=== PATIENT | male | born 1985 | race Caucasian/White ===

== ENCOUNTER 2018-07-02 19:01 | Emergency (ER) | payer SELFPAY ==
[2018-07-02 19:29] LABS: Absolute Lymphocytes (CBC) 2.8 K/uL (0.7-4.9); Absolute Monocytes 0.8 K/uL (0.1-1.3); Basophils % 0.6 % (0-1.3); Eosinophils % 1.1 % (0-4.4); Hematocrit 51.8 % (39.6-49.0); Monocytes % 5.5 % (3.3-12.3); RBC Red Blood Cell Count 5.44 M/uL (4.33-5.43)
[2018-07-02 19:32] LABS: Protime INR 1.01
[2018-07-02 19:49] LABS: ALT/SGPT 67 U/L (12-78); AST/SGOT 33 U/L (15-37); Albumin 3.5 g/dL (3.4-5.0); Alkaline Phosphatase 111 U/L (45-117); BUN Blood Urea Nitrogen 11 mg/dL (7-18); Bicarbonate 26 mmol/L (21-32); Bilirubin Direct < 0.1 mg/dL (0-0.2); Bilirubin Total 0.4 mg/dL (0.2-1.0); Glucose Level 102 mg/dL (74-106); Magnesium 1.6 mg/dL (1.8-2.4); Potassium 4.2 mmol/L (3.5-5.1); Protein, Total 7.3 g/dL (6.4-8.2); Sodium Level 138 mmol/L (136-145); Troponin (Emerg Dept Use Only) < 0.02 ng/mL (0.0-0.045)
[2018-07-02 19:51] LABS: NT PRO-BNP < 5 pg/mL (<125)
--- NOTE | 2018-07-02 20:05 | RAD REPORT ---
EXAM DESCRIPTION: RAD - Chest Single View - 07/02/2018 7:49 pm CLINICAL HISTORY: CHEST PAIN Chest pain. COMPARISON: Chest Single View dated 08/20/2017 FINDINGS: Portable technique limits examination quality. The lungs are grossly clear. The heart is normal in size. No displaced fractures. IMPRESSION: No acute intrathoracic process suspected.
[2018-07-02] MEDS ORDERED: KETOROLAC 30 MG/ML INJ ONE (20:54)
[2018-07-02] MEDS ORDERED: DIAZEPAM 5 MG TABLET ONE (21:00)
--- NOTE | 2018-07-02 21:06 | EDPHYS ---
Physician Documentation [facility] Name: Kar Suresh Age: 32 yrs Sex: Male : 1985 Arrival Date: 07/02/2018 Time: 19:02 Bed 7 Private MD: ED Physician Domingo Kendall HPI: 07/02 19:23 This 32 yrs old Male presents to ER via Ambulatory with complaints of Chest pm1 Pain, X 1DAY. 19:23 The patient or guardian reports chest pain that is located primarily in the anterior pm1 chest wall, left. The pain does not radiate. Associated signs and symptoms: Pertinent positives: headache, Pertinent negatives: abdominal pain, cough, diaphoresis, dizziness, nausea, palpitations, shortness of breath, syncope, vomiting. The chest pain is described as sharp. Duration: The patient or guardian reports a single episode, that is still ongoing. Modifying factors: The symptoms are alleviated by nothing. the symptoms are aggravated by deep breath, palpation of area, movement of left arm. Severity of pain: in the emergency department the pain is unchanged. The patient has not experienced similar symptoms in the past. Historical: - Allergies: 19:21 No Known Allergies; ph - Home Meds: 19:21 citalopram 40 mg tab 1 tab once daily [Active]; lisinopril 20 mg Oral tab 1 tab once ph daily [Active]; - PMHx: 19:21 Hypertension; ph - Immunization history:: Flu vaccine is not up to date. - Social history:: Smoking status: Patient uses tobacco products, smokes one pack cigarettes per day. - Ebola Screening: : No symptoms or risks identified at this time. ROS: 19:24 Constitutional: Negative for fever, chills, and weight loss, Eyes: Negative for injury, pm1 pain, redness, and discharge, ENT: Negative for injury, pain, and discharge, Neck: Negative for injury, pain, and swelling. 19:24 Respiratory: Negative for shortness of breath, cough, wheezing, and pleuritic chest pain, Abdomen/GI: Negative for abdominal pain, nausea, vomiting, diarrhea, and constipation, Back: Negative for injury and pain, : Negative for injury, bleeding, discharge, and swelling, MS/Extremity: Negative for injury and deformity, Skin: Negative for injury, rash, and discoloration, Neuro: Negative for headache, weakness, numbness, tingling, and seizure. 19:24 Cardiovascular: Positive for chest pain, Negative for edema, orthopnea, palpitations, paroxysmal nocturnal dyspnea. Exam: 19:24 Constitutional: This is a well developed, well nourished patient who is awake, alert, pm1 and in no acute distress. Head/Face: Normocephalic, atraumatic. Eyes: Pupils equal round and reactive to light, extra-ocular motions intact. Lids and lashes normal. Conjunctiva and sclera are non-icteric and not injected. Cornea within normal limits. Periorbital areas with no swelling, redness, or edema. ENT: Nares patent. No nasal discharge, no septal abnormalities noted. Tympanic membranes are normal and external auditory canals are clear. Oropharynx with no redness, swelling, or masses, exudates, or evidence of obstruction, uvula midline. Mucous membranes moist. Neck: Trachea midline, no thyromegaly or masses palpated, and no cervical lymphadenopathy. Supple, full range of motion without nuchal rigidity, or vertebral point tenderness. No Meningismus. 19:24 Cardiovascular: Regular rate and rhythm with a normal S1 and S2. No gallops, murmurs, or rubs. Normal PMI, no JVD. No pulse deficits. Respiratory: Lungs have equal breath sounds bilaterally, clear to auscultation and percussion. No rales, rhonchi or wheezes noted. No increased work of breathing, no retractions or nasal flaring. Abdomen/GI: Soft, non-tender, with normal bowel sounds. No distension or tympany. No guarding or rebound. No evidence of tenderness throughout. Back: No spinal tenderness. No costovertebral tenderness. Full range of motion. Skin: Warm, dry with normal turgor. Normal color with no rashes, no lesions, and no evidence of cellulitis. MS/ Extremity: Pulses equal, no cyanosis. Neurovascular intact. Full, normal range of motion. 19:24 Chest/axilla: Inspection: normal, Palpation: crepitus, is not appreciated, tenderness, that is moderate, of the focal point on anterior aspect of left upper chest, that totally reproduces the patient's complaints, reproduced with deep breathing and movement of left arm. 19:24 Neuro: Orientation: is normal, Motor: is normal, moves all fours. Vital Signs: 19:19 BP 156 / 113; Pulse 98; Resp 20; Temp 98.4; Pulse Ox 98% on R/A; Weight 113.4 kg; Pain ph 8/10; 19:45 BP 145 / 98; Pulse 91; Resp 19; Pulse Ox 95% on R/A; ca1 20:30 BP 158 / 97; Pulse 84; Resp 20; Pulse Ox 95% on R/A; Pain 8/10; ca1 20:58 BP 145 / 80; Pulse 93; Resp 18; Pulse Ox 96% on R/A; Pain 6/10; ca1 MDM: 19:22 Patient medically screened. pm1 19:26 Data reviewed: vital signs. Data interpreted: Pulse oximetry: on room air is 98 %. pm1 Interpretation: normal. 20:49 Counseling: I had a detailed discussion with the patient and/or guardian regarding: the pm1 historical points, exam findings, and any diagnostic results supporting the discharge/admit diagnosis, lab results, radiology results, the need for outpatient follow up, to return to the emergency department if symptoms worsen or persist or if there are any questions or concerns that arise at home. 07/02 19:19 Order name: Basic Metabolic Panel; Complete Time: 20:04 ph 07/02 19:19 Order name: CBC with Diff; Complete Time: 20: ph 07/02 19:19 Order name: LFT's; Complete Time: 20: ph 07/02 19:19 Order name: Magnesium; Complete Time: 20:04 ph 07/02 19:19 Order name: NT PRO-BNP; Complete Time: 20:04 ph 07/02 19:19 Order name: PT-INR; Complete Time: 20:04 ph 07/02 19:19 Order name: Troponin (emerg Dept Use Only); Complete Time: 20:04 ph 07/02 19:19 Order name: XRAY Chest (1 view); Complete Time: 20:08 ph 07/02 19:19 Order name: EKG; Complete Time: 19:20 ph 07/02 19:19 Order name: Cardiac monitoring; Complete Time: 19:21 ph 07/02 19:19 Order name: EKG - Nurse/Tech; Complete Time: 19:21 ph 07/02 19:19 Order name: IV Saline Lock; Complete Time: 19:21 ph 07/02 19:19 Order name: Labs collected and sent; Complete Time: 19:21 ph 07/02 19:19 Order name: O2 Per Protocol; Complete Time: 19:21 ph 07/02 19:19 Order name: O2 Sat Monitoring; Complete Time: 19:22 ph Administered Medications: 20:48 Drug: TORadol 30 mg Route: IVP; Site: right antecubital; ca1 21:06 Follow up: Response: No adverse reaction ca1 20:52 Drug: Valium 5 mg Route: PO; ca1 21:06 Follow up: Response: Medication administered at discharge. ca1 Disposition: 07/02/18 20:49 Discharged to Home. Impression: Chest pain, unspecified, Acute stress reaction. - Condition is Stable. - Discharge Instructions: Nonspecific Chest Pain, Steps to Quit Smoking, Smoking Hazards, Stress and Stress Management. - Prescriptions for Valium 2 mg Oral Tablet - take 1 tablet by ORAL route every 8 hours As needed; 10 tablet. Diclofenac Sodium 75 mg Oral Tablet, Delayed Release (E.C.) - take 1 tablet by ORAL route 2 times per day As needed; 30 tablet. - Medication Reconciliation Form, Thank You Letter, Antibiotic Education, Prescription Opioid Use form. - Follow up: Emergency Department; When: As needed; Reason: Worsening of condition. Follow up: Private Physician; When: 2 - 3 days; Reason: Recheck today's complaints, Continuance of care, Re-evaluation by your physician. - Problem is new. - Symptoms have improved. Addendum: 07/09/2018 06:52 Co-signature as Attending Physician, Domingo Kendall MD I agree with the assessment and t w4 plan of care. Signatures: Dispatcher [employer] Sugar Corbin, RN RN ph Dajuan Olea, TAKE UP SUPERVISOR TAKE UP SUPERVISOR pm1 Domingo Kendall MD MD tw4 Iris Lu RN RN ca1 Corrections: (The following items were deleted from the chart) 07/02 21:05 20:49 07/02/2018 20:49 Discharged to Home. Impression: Chest pain, unspecified; Acute ca1 stress reaction. Condition is Stable. Forms are Medication Reconciliation Form, Thank You Letter, Antibiotic Education, Prescription Opioid Use. Follow up: Emergency Department; When: As needed; Reason: Worsening of condition. Follow up: Private Physician; When: 2 - 3 days; Reason: Recheck today's complaints, Continuance of care, Re-evaluation by your physician. Problem is new. Symptoms have improved. pm1
--- NOTE | 2018-07-02 21:06 | ER ---
Nurse's Notes [facility] Name: Kar Suresh Age: 32 yrs Sex: Male : 1985 Arrival Date: 07/02/2018 Time: 19:02 Bed 7 Private MD: Diagnosis: Chest pain, unspecified;Acute stress reaction Presentation: 07/02 19:16 Presenting complaint: Patient states: L sided chest pain that began this morning, ph describes as constant pressure, denies SOB, N/V, or diaphoresis, reports family hx of cardiac issues, states, " My mother had a major heart attack at 31.". Transition of care: patient was not received from another setting of care. Onset of symptoms was July 02, 2018. Risk Assessment: Do you want to hurt yourself or someone else? Patient reports no desire to harm self or others. Initial Sepsis Screen: Does the patient meet any 2 criteria? No. Patient's initial sepsis screen is negative. Does the patient have a suspected source of infection? No. Patient's initial sepsis screen is negative. Care prior to arrival: None. 19:16 Method Of Arrival: Ambulatory ph 19:16 Acuity: MIKO 2 ph Historical: - Allergies: 19:21 No Known Allergies; ph - Home Meds: 19:21 citalopram 40 mg tab 1 tab once daily [Active]; lisinopril 20 mg Oral tab 1 tab once ph daily [Active]; - PMHx: 19:21 Hypertension; ph - Immunization history:: Flu vaccine is not up to date. - Social history:: Smoking status: Patient uses tobacco products, smokes one pack cigarettes per day. - Ebola Screening: : No symptoms or risks identified at this time. Screenin:23 Abuse screen: Denies threats or abuse. Denies injuries from another. Nutritional ca1 screening: No deficits noted. Tuberculosis screening: No symptoms or risk factors identified. Fall Risk None identified. Assessment: 19:23 General: Appears in no apparent distress. Behavior is calm, cooperative, appropriate ca1 for age. Pain: Complains of pain in chest Pain does not radiate. Pain currently is 8 out of 10 on a pain scale. Quality of pain is described as dull, Pain began since 10am this morning. Neuro: Level of Consciousness is awake, alert, obeys commands, Oriented to person, place, time, situation. Cardiovascular: Heart tones S1 S2 present Capillary refill < 3 seconds Patient's skin is warm and dry. Pulses are all present. Rhythm is regular. Respiratory: Airway is patent Trachea midline Respiratory effort is even, unlabored, Respiratory pattern is regular, symmetrical, Breath sounds are clear bilaterally. GI: Abdomen is round non-distended, Bowel sounds present X 4 quads. Abd is soft and non tender X 4 quads. : No signs and/or symptoms were reported regarding the genitourinary system. EENT: No signs and/or symptoms were reported regarding the EENT system. Derm: Skin is intact, is healthy with good turgor, Skin is pink, warm \\T\\ dry. Musculoskeletal: Circulation, motion, and sensation intact. Capillary refill < 3 seconds, Range of motion: intact in all extremities. 20:35 Reassessment: Patient appears in no apparent distress at this time. Patient and/or ca1 family updated on plan of care and expected duration. Pain level reassessed. Patient is alert, oriented x 3, equal unlabored respirations, skin warm/dry/pink. 20:59 Reassessment: Patient appears in no apparent distress at this time. Patient and/or ca1 family updated on plan of care and expected duration. Pain level reassessed. Patient is alert, oriented x 3, equal unlabored respirations, skin warm/dry/pink. Vital Signs: 19:19 BP 156 / 113; Pulse 98; Resp 20; Temp 98.4; Pulse Ox 98% on R/A; Weight 113.4 kg; Pain ph 8/10; 19:45 BP 145 / 98; Pulse 91; Resp 19; Pulse Ox 95% on R/A; ca1 20:30 BP 158 / 97; Pulse 84; Resp 20; Pulse Ox 95% on R/A; Pain 8/10; ca1 20:58 BP 145 / 80; Pulse 93; Resp 18; Pulse Ox 96% on R/A; Pain 6/10; ca1 ED Course: 19:02 Patient arrived in ED. es 19:17 Dajuan Olea NP is PHCP. pm1 19:18 Shayy Sosa MD is Attending Physician. pm1 19:18 Triage completed. ph 19:19 Arm band placed on. ph 19:20 EKG done, by ED staff, reviewed by Domingo Kendall MD. Inserted saline lock: 20 gauge mt in right antecubital area, using aseptic technique. Blood collected. 19:23 Iris Lu, RN is Primary Nurse. ca1 19:23 Patient has correct armband on for positive identification. Placed in gown. Bed in low ca1 position. Call light in reach. Side rails up X 1. front desk monitor on. Pulse ox on. NIBP on. 19:23 Warm blanket given. ca1 19:50 XRAY Chest (1 view) In Process Unspecified. EDMS 20:49 Domingo Kendall MD is Attending Physician. pm1 20:59 No provider procedures requiring assistance completed. IV discontinued, intact, ca1 bleeding controlled, No redness/swelling at site. Pressure dressing applied. Patient maintains SpO2 saturation greater than 95% on room air. Administered Medications: 20:48 Drug: TORadol 30 mg Route: IVP; Site: right antecubital; ca1 21:06 Follow up: Response: No adverse reaction ca1 20:52 Drug: Valium 5 mg Route: PO; ca1 21:06 Follow up: Response: Medication administered at discharge. ca1 Outcome: 20:49 Discharge ordered by . pm1 20:59 Discharged to home ambulatory. ca1 20:59 Condition: stable 20:59 Discharge instructions given to patient, Instructed on discharge instructions, follow up and referral plans. medication usage, Demonstrated understanding of instructions, follow-up care, medications. 20:59 Discharged to home ambulatory, with family. ca1 21:05 Patient left the ED. ca1 Signatures: Dispatcher [employer] EDUna Seay Patricia, RN RN Dajuan Olea NP REPRODUCTION ORDER PROCESSOR pm1 Lyndsay White tx Iris Lu RN RN ca1
--- NOTE | 2018-07-03 06:53 | EKG ---
Test Date: 2018-07-02 Test Time: 19:09:34 Bobbin Coil Winder: YUDELKA MEASUREMENT RESULTS: Intervals: Rate: 90 NJ: 148 QRSD: 92 QT: 358 QTc: 437 [place]: P: 61 NJ: 148 QRS: 62 T: 68 INTERPRETIVE STATEMENTS: Normal sinus rhythm Possible Anterior infarct, age undetermined Abnormal ECG Compared to ECG 08/20/2017 18:57:23 Myocardial infarct finding now present Sinus tachycardia no longer present Electronically Signed On 07-03-18 06:52:45 WEB PORTAL DEVELOPER by Alphonse Green
== END 2018-07-02 21:05 | disposition home or self-care (01) ==
LOC: ER 19:01
DX: F43.0 Acute stress reaction (principal); R07.9 Chest pain, unspecified; R94.31 Abnormal electrocardiogram [ECG] [EKG]; I10 Essential (primary) hypertension; F17.210 Nicotine dependence, cigarettes, uncomplicated; Z79.899 Other long term (current) drug therapy
CPT/HCPCS: 36415; 71045; 80048; 80076; 83735; 83880; 84484; 85025; 85610; 93005; 96374; 99285

== ENCOUNTER 2019-04-18 18:45 | Emergency (ER) | payer SELFPAY ==
[2019-04-18] MEDS ORDERED: LORAZEPAM 1 MG TABLET ONE (19:21)
[2019-04-18 19:24] LABS: Absolute Lymphocytes (CBC) 3.1 K/uL (0.7-4.9); Basophils % 0.7 % (0-1.3); Hematocrit 47.4 % (39.6-49.0); Lymphocytes % 25.8 % (15.3-44.8); MPV 8.9 fL (7.6-11.3); RBC Red Blood Cell Count 4.97 M/uL (4.33-5.43)
--- NOTE | 2019-04-18 19:31 | RAD REPORT ---
EXAM DESCRIPTION: RAD - Chest Single View - 04/18/2019 7:20 pm CLINICAL HISTORY: Chest pain COMPARISON: June 2008 TECHNIQUE: AP portable chest image was obtained 1914 hours . FINDINGS: Lungs are clear. Heart and vasculature are normal. No measurable pleural effusion and no p neumothorax. No acute bony abnormality seen. No acute aortic findings suspected. IMPRESSION: No acute cardiopulmonary process. No significant interval change.
[2019-04-18 19:48] LABS: ALT/SGPT 99 U/L (12-78); AST/SGOT 59 U/L (15-37); Albumin 3.5 g/dL (3.4-5.0); Alkaline Phosphatase 113 U/L (45-117); BUN Blood Urea Nitrogen 9 mg/dL (7-18); Bicarbonate 27 mmol/L (21-32); Bilirubin Direct < 0.1 mg/dL (0-0.2); Bilirubin Total 0.3 mg/dL (0.2-1.0); Glucose Level 128 mg/dL (74-106); Magnesium 1.6 mg/dL (1.8-2.4); Potassium 3.9 mmol/L (3.5-5.1); Protein, Total 7.3 g/dL (6.4-8.2); Sodium Level 138 mmol/L (136-145); Troponin (Emerg Dept Use Only) < 0.02 ng/mL (0.0-0.045)
[2019-04-18 19:54] LABS: NT PRO-BNP < 5 pg/mL (<125)
[2019-04-18] MEDS ORDERED: ACETAMINOPHEN 325 MG TABLET ONE (20:03)
[2019-04-18] MEDS ORDERED: CEFTRIAXONE/SWI 1gm 1 GM/10 ML SYR ONE (20:34)
[2019-04-18] MEDS ORDERED: MAGNESIUM SULFATE 1 gm IVPB 1 GM/100 ML BAG IV ONE (20:34)
--- NOTE | 2019-04-18 22:11 | ER ---
Nurse's Notes [facility] Name: Kar Suresh Age: 33 yrs Sex: Male : 1985 Arrival Date: 04/18/2019 Time: 18:47 Bed 6 Private MD: Diagnosis: Chest pain, unspecified Presentation: 04/18 19:00 Presenting complaint: Patient states: cheat pain across entire chest X 2 hours, iw described as "really bad acid indigestion", achy, pressure, also has a massive headache and also spit up some blood. Transition of care: patient was not received from another setting of care. Onset of symptoms was April 18, 2019. Risk Assessment: Do you want to hurt yourself or someone else? Patient reports no desire to harm self or others. Initial Sepsis Screen: Does the patient meet any 2 criteria? No. Patient's initial sepsis screen is negative. Does the patient have a suspected source of infection? No. Patient's initial sepsis screen is negative. Care prior to arrival: None. 19:00 Method Of Arrival: Ambulatory iw 19:00 Acuity: MIKO 2 iw Historical: - Allergies: 19:11 No Known Allergies; iw - Home Meds: 19:11 None [Active]; iw - PMHx: 19:11 Hypertension; iw - PSHx: 19:11 None; iw - Immunization history:: Adult Immunizations not up to date. - Social history:: Smoking status: Patient uses tobacco products, smokes one pack cigarettes per day. Patient uses alcohol, on a daily basis. - Ebola Screening: : Patient negative for fever greater than or equal to 101.5 degrees Fahrenheit, and additional compatible Ebola Virus Disease symptoms Patient denies exposure to infectious person Patient denies travel to an Ebola-affected area in the 21 days before illness onset No symptoms or risks identified at this time. Screenin:00 Abuse screen: Denies threats or abuse. Nutritional screening: No deficits noted. jb4 Tuberculosis screening: No symptoms or risk factors identified. Fall Risk IV access (20 points). Total Page Fall Scale indicates No Risk (0-24 pts). Assessment: 19:00 General: Appears in no apparent distress. uncomfortable, Behavior is cooperative, jb4 anxious. Pain: Complains of pain in chest Pain does not radiate. Pain currently is 7 out of 10 on a pain scale. Quality of pain is described as pressure, Pain began 3 hours ago. Neuro: Level of Consciousness is awake, alert, obeys commands, Oriented to person, place, time, situation. Cardiovascular: Patient's skin is warm and dry. Rhythm is sinus tachycardia. Respiratory: Reports cough that is productive, Airway is patent Respiratory effort is even, unlabored, Respiratory pattern is regular, symmetrical. GI: No deficits noted. No signs and/or symptoms were reported involving the gastrointestinal system. : No deficits noted. No signs and/or symptoms were reported regarding the genitourinary system. EENT: No deficits noted. No signs and/or symptoms were reported regarding the EENT system. Derm: Skin is intact, Skin is pink, warm \\T\\ dry. Musculoskeletal: Circulation, motion, and sensation intact. Range of motion: intact in all extremities. 19:17 Reassessment: Pt appears to be very anxious, voices anxiety, request something for his jb4 anxiety. Provider notified, see [facility] for orders. 20:00 Reassessment: Patient appears in no apparent distress at this time. Patient and/or jb4 family updated on plan of care and expected duration. Pain level reassessed. Patient is alert, oriented x 3, equal unlabored respirations, skin warm/dry/pink. 21:07 Reassessment: Patient appears in no apparent distress at this time. Patient and/or jb4 family updated on plan of care and expected duration. Pain level reassessed. Patient is alert, oriented x 3, equal unlabored respirations, skin warm/dry/pink. Patient states feeling better. 22:00 Reassessment: Patient appears in no apparent distress at this time. Patient and/or jb4 family updated on plan of care and expected duration. Pain level reassessed. Patient is alert, oriented x 3, equal unlabored respirations, skin warm/dry/pink. Patient states feeling better. 22:21 Reassessment: Patient appears in no apparent distress at this time. Patient and/or jb4 family updated on plan of care and expected duration. Pain level reassessed. Patient is alert, oriented x 3, equal unlabored respirations, skin warm/dry/pink. PT verbalized understanding of d/c and follow up instructions. Ambulated out of ED with steady gait with . Vital Signs: 19:11 BP 151 / 108; Pulse 111; Resp 20 S; Temp 97.8; Pulse Ox 97% on R/A; Weight 117.93 kg; iw Height 5 ft. 10 in. (177.80 cm); Pain 8/10; 20:30 BP 133 / 82; Pulse 86; Resp 18; Pulse Ox 99% on R/A; jb4 21:15 BP 133 / 82; Pulse 93; Resp 16; Pulse Ox 95% on R/A; jb4 22:00 BP 122 / 90; Pulse 96; Resp 14; Pulse Ox 100% on R/A; jb4 19:11 Body Mass Index 37.31 (117.93 kg, 177.80 cm) iw ED Course: 18:47 Patient arrived in ED. mr 18:56 Dajuan Olea NP is PHCP. pm1 18:56 Mitul Pierre MD is Attending Physician. pm1 19:00 Patient has correct armband on for positive identification. Bed in low position. Call jb4 light in reach. Side rails up X 1. campus monitor on. Pulse ox on. NIBP on. 19:00 Initial lab(s) drawn, by az, sent to lab. Inserted saline lock: 20 gauge in right jb4 antecubital area, using aseptic technique. Blood collected. Patient maintains SpO2 saturation greater than 95% on room air. 19:01 Brian Serrano, RN is Primary Nurse. jb4 19:11 Triage completed. iw 19:11 Arm band placed on. iw 19:20 XRAY Chest (1 view) In Process Unspecified. EDMS 22:21 No provider procedures requiring assistance completed. IV discontinued, intact, jb4 bleeding controlled, No redness/swelling at site. Pressure dressing applied. Administered Medications: 19:26 Drug: Ativan 1 mg Route: PO; jb4 19:50 Follow up: Response: No adverse reaction; Marked relief of symptoms; Pain is decreased jb4 20:09 Drug: Tylenol 650 mg Route: PO; jb4 20:30 Follow up: Response: No adverse reaction; Pain is decreased jb4 20:40 Drug: Rocephin 1 grams Route: IV; Rate: calculated rate; Site: right antecubital; jb4 20:45 Follow up: Response: No adverse reaction; IV Status: Completed infusion; IV Intake: [id number] 20:45 Drug: Magnesium Sulfate 1 grams Route: IVPB; Infused Over: 1 hrs; Site: right jb4 antecubital; 21:45 Follow up: Response: No adverse reaction; IV Status: Completed infusion; IV Intake: jb4 100ml Intake: 20:45 IV: 10ml; Total: 10ml. jb4 21:45 IV: 100ml; Total: 110ml. jb4 Outcome: 22:09 Discharge ordered by . pm1 22:22 Discharged to home ambulatory, with significant other. jb4 22:22 Condition: stable 22:22 Discharge instructions given to patient, significant other, Instructed on discharge instructions, follow up and referral plans. medication usage, Demonstrated understanding of instructions, follow-up care, medications, Prescriptions given X 2. 22:24 Patient left the ED. jb4 Signatures: Dispatcher [employer] Lucille Calderon Irene, RN Dajuan Rosenberg, HEEL ATTACHER HEEL ATTACHER pm1 Brian Serrano RN RN jb4
--- NOTE | 2019-04-18 22:11 | EDPHYS ---
Physician Documentation [facility] Name: Kar Suresh Age: 33 yrs Sex: Male : 1985 Arrival Date: 04/18/2019 Time: 18:47 Bed 6 Private MD: ED Physician Mitul Pierre HPI: 04/18 19:06 This 33 yrs old Male presents to ER via Ambulatory with complaints of Chest pm1 Pain. 19:06 The patient or guardian reports chest pain that is located primarily in the mid-sternal pm1 area. The pain does not radiate. Associated signs and symptoms: Pertinent positives: cough, Pertinent negatives: abdominal pain, headache, shortness of breath. The chest pain is described as a pressure. Duration: The patient or guardian reports a single episode, that is still ongoing. Modifying factors: The symptoms are alleviated by nothing. the symptoms are aggravated by cough, deep breath. Severity of pain: in the emergency department the pain is actually worse. The patient has experienced similar episodes in the past, a few times, today's symptoms are similar, to when the patient was apparently diagnosed with bronchitis. The patient has not recently seen a physician. Historical: - Allergies: 19:11 No Known Allergies; iw - Home Meds: 19:11 None [Active]; iw - PMHx: 19:11 Hypertension; iw - PSHx: 19:11 None; iw - Immunization history:: Adult Immunizations not up to date. - Social history:: Smoking status: Patient uses tobacco products, smokes one pack cigarettes per day. Patient uses alcohol, on a daily basis. - Ebola Screening: : Patient negative for fever greater than or equal to 101.5 degrees Fahrenheit, and additional compatible Ebola Virus Disease symptoms Patient denies exposure to infectious person Patient denies travel to an Ebola-affected area in the 21 days before illness onset No symptoms or risks identified at this time. ROS: 19:15 Constitutional: Negative for fever, chills, and weight loss, Eyes: Negative for injury, pm1 pain, redness, and discharge, ENT: Negative for injury, pain, and discharge, Neck: Negative for injury, pain, and swelling. 19:15 Respiratory: Negative for shortness of breath, cough, wheezing, and pleuritic chest pain, Abdomen/GI: Negative for abdominal pain, nausea, vomiting, diarrhea, and constipation, Back: Negative for injury and pain, MS/Extremity: Negative for injury and deformity, Skin: Negative for injury, rash, and discoloration, Neuro: Negative for headache, weakness, numbness, tingling, and seizure. 19:15 Cardiovascular: Positive for chest pain, Negative for edema, orthopnea, palpitations. 19:15 Psych: Positive for anxiety. Exam: 19:15 Constitutional: This is a well developed, well nourished patient who is awake, alert, pm1 and in no acute distress. Head/Face: Normocephalic, atraumatic. Eyes: Pupils equal round and reactive to light, extra-ocular motions intact. Lids and lashes normal. Conjunctiva and sclera are non-icteric and not injected. Cornea within normal limits. Periorbital areas with no swelling, redness, or edema. ENT: Nares patent. No nasal discharge, no septal abnormalities noted. Tympanic membranes are normal and external auditory canals are clear. Oropharynx with no redness, swelling, or masses, exudates, or evidence of obstruction, uvula midline. Mucous membranes moist. Neck: Trachea midline, no thyromegaly or masses palpated, and no cervical lymphadenopathy. Supple, full range of motion without nuchal rigidity, or vertebral point tenderness. No Meningismus. Chest/axilla: Normal chest wall appearance and motion. Nontender with no deformity. No lesions are appreciated. Cardiovascular: Regular rate and rhythm with a normal S1 and S2. No gallops, murmurs, or rubs. Normal PMI, no JVD. No pulse deficits. Respiratory: Lungs have equal breath sounds bilaterally, clear to auscultation and percussion. No rales, rhonchi or wheezes noted. No increased work of breathing, no retractions or nasal flaring. Abdomen/GI: Soft, non-tender, with normal bowel sounds. No distension or tympany. No guarding or rebound. No evidence of tenderness throughout. Back: No spinal tenderness. No costovertebral tenderness. Full range of motion. Skin: Warm, dry with normal turgor. Normal color with no rashes, no lesions, and no evidence of cellulitis. MS/ Extremity: Pulses equal, no cyanosis. Neurovascular intact. Full, normal range of motion. 19:15 Neuro: Orientation: is normal, Motor: is normal, moves all fours. Vital Signs: 19:11 BP 151 / 108; Pulse 111; Resp 20 S; Temp 97.8; Pulse Ox 97% on R/A; Weight 117.93 kg; iw Height 5 ft. 10 in. (177.80 cm); Pain 8/10; 20:30 BP 133 / 82; Pulse 86; Resp 18; Pulse Ox 99% on R/A; jb4 21:15 BP 133 / 82; Pulse 93; Resp 16; Pulse Ox 95% on R/A; jb4 22:00 BP 122 / 90; Pulse 96; Resp 14; Pulse Ox 100% on R/A; jb4 19:11 Body Mass Index 37.31 (117.93 kg, 177.80 cm) iw MDM: 18:56 Patient medically screened. pm1 22:08 Data reviewed: vital signs. Data interpreted: Pulse oximetry: on room air is 100 %. pm1 Interpretation: normal. Counseling: I had a detailed discussion with the patient and/or guardian regarding: the historical points, exam findings, and any diagnostic results supporting the discharge/admit diagnosis, lab results, radiology results, the need for outpatient follow up, to return to the emergency department if symptoms worsen or persist or if there are any questions or concerns that arise at home. 04/18 18:56 Order name: Basic Metabolic Panel; Complete Time: 19:56 pm1 04/18 18:56 Order name: CBC with Diff; Complete Time: 19:41 pm1 04/18 18:56 Order name: LFT's; Complete Time: 19:56 pm1 04/18 18:56 Order name: Magnesium; Complete Time: 19:56 pm1 04/18 18:56 Order name: NT PRO-BNP; Complete Time: 19:56 pm1 04/18 18:56 Order name: PT-INR; Complete Time: 19:41 pm1 04/18 18:56 Order name: Troponin (emerg Dept Use Only); Complete Time: 19:56 pm1 04/18 18:56 Order name: XRAY Chest (1 view); Complete Time: 19:41 pm1 04/18 18:56 Order name: EKG; Complete Time: 18:59 pm1 04/18 18:56 Order name: Cardiac monitoring; Complete Time: 19:16 pm1 04/18 18:56 Order name: EKG - Nurse/Tech; Complete Time: 19:07 pm1 04/18 18:56 Order name: IV Saline Lock; Complete Time: 19:16 pm1 04/18 18:56 Order name: Labs collected and sent; Complete Time: 19:16 pm1 04/18 18:56 Order name: O2 Per Protocol; Complete Time: 19:07 pm1 04/18 18:56 Order name: O2 Sat Monitoring; Complete Time: 19:07 pm1 04/18 21:21 Order name: Troponin (emerg Dept Use Only); Complete Time: 22:08 pm1 Administered Medications: 19:26 Drug: Ativan 1 mg Route: PO; jb4 19:50 Follow up: Response: No adverse reaction; Marked relief of symptoms; Pain is decreased jb4 20:09 Drug: Tylenol 650 mg Route: PO; jb4 20:30 Follow up: Response: No adverse reaction; Pain is decreased jb4 20:40 Drug: Rocephin 1 grams Route: IV; Rate: calculated rate; Site: right antecubital; jb4 20:45 Follow up: Response: No adverse reaction; IV Status: Completed infusion; IV Intake: [id number] 20:45 Drug: Magnesium Sulfate 1 grams Route: IVPB; Infused Over: 1 hrs; Site: right jb4 antecubital; 21:45 Follow up: Response: No adverse reaction; IV Status: Completed infusion; IV Intake: jb4 100ml Disposition: 04/19 12:59 Co-signature as Attending Physician, Mitul Pierre MD I agree with the assessment and kdr plan of care. Disposition: 04/18/19 22:09 Discharged to Home. Impression: Chest pain, unspecified. - Condition is Stable. - Discharge Instructions: Nonspecific Chest Pain. - Prescriptions for Zithromax Z- Moises 250 mg Oral Tablet - take 1 tablet by ORAL route as directed for 5 days Day 1 - take two (2) tablets one time. Day 2, 3, 4 , 5 take one (1) tablet once daily.; 6 tablet. Guaifenesin AC 10- 100 mg/5 mL Oral Liquid - take 10 milliliter by ORAL route every 4 hours As needed; 240 milliliter. - Medication Reconciliation Form, Thank You Letter, Antibiotic Education, Prescription Opioid Use form. - Follow up: Emergency Department; When: As needed; Reason: Worsening of condition. Follow up: Private Physician; When: 2 - 3 days; Reason: Recheck today's complaints, Continuance of care, Re-evaluation by your physician. - Problem is new. - Symptoms have improved. Signatures: Dispatcher [employer] EDCT Mitul Pierre MD MD kdr Jessa Burrell RN RN iw Dajuan Olea, ICD 9 CODER ICD 9 CODER pm1 Brian Serrano RN RN jb4 Corrections: (The following items were deleted from the chart) 04/18 18:58 18:57 Basic Metabolic Panel ordered. [facility] 18:58 18:57 CBC with Automated Diff ordered. [facility] 18:58 18:57 Liver (Hepatic) Function ordered. [facility] 18:58 18:57 Magnesium ordered. [facility] 18:58 18:57 NT PRO-BNP ordered. [facility] 18:58 18:57 Protime (+INR) ordered. [facility] 18:58 18:57 Troponin (Emerg Dept Use Only) ordered. [facility] 22:24 22:09 04/18/2019 22:09 Discharged to Home. Impression: Chest pain, unspecified. jb4 Condition is Stable. Forms are Medication Reconciliation Form, Thank You Letter, Antibiotic Education, Prescription Opioid Use. Follow up: Emergency Department; When: As needed; Reason: Worsening of condition. Follow up: Private Physician; When: 2 - 3 days; Reason: Recheck today's complaints, Continuance of care, Re-evaluation by your physician. Problem is new. Symptoms have improved. pm1
[2019-04-18 22:38] VITALS: TEMP 97.8
[2019-04-18 22:41] VITALS: BP 122/90; O2SAT 100
--- NOTE | 2019-04-19 10:02 | EKG ---
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
--- NOTE | 2019-04-19 10:02 | EKG ---
Test Date: 2019-04-18 Test Time: 18:58:45 Archery Equipment Hay Sorter: GONZÁLEZ MEASUREMENT RESULTS: Intervals: Rate: 100 VT: 150 QRSD: 88 QT: 334 QTc: 430 [place]mell: P: 62 VT: 150 QRS: 75 T: 53 INTERPRETIVE STATEMENTS: Poor data quality, interpretation may be adversely affected Normal sinus rhythm Normal ECG Compared to ECG 07/02/2018 19:09:34 Myocardial infarct finding no longer present Electronically Signed On 04-19-19 10:01:19 CDT by Alphonse Green
== END 2019-04-18 22:24 | disposition home or self-care (01) ==
LOC: ER 18:45
DX: R07.9 Chest pain, unspecified (principal); F17.210 Nicotine dependence, cigarettes, uncomplicated
CPT/HCPCS: 36415; 71045; 80048; 80076; 83735; 83880; 84484; 85025; 85610; 93005; 96365; 96375; 99285; J0696; J3475